=== PATIENT | male | born 1940 | race Caucasian/White ===

== ENCOUNTER → 2019-04-20 09:40 | Outpatient (CLI) | payer MEDICARE, OTHER | END | disposition home or self-care (01) | LOC: D.HCCECHO 09:40 → D.HCCARDIO 10:00 → D.HCCECHO 10:00 | PROVIDERS: ATTEND Internal Medicine Cardiovascular Disease | DX: I35.0 Nonrheumatic aortic (valve) stenosis (principal) ==

== ENCOUNTER → 2020-12-05 09:52 | Outpatient (CLI) | payer MEDICARE, OTHER | END | disposition home or self-care (01) | LOC: D.MRI 09:52 | PROVIDERS: ATTEND Family Medicine | DX: M54.5 Low back pain (principal) ==